=== PATIENT | female | born 1955 | race Hispanic/Latino ===

== ENCOUNTER → 2024-05-03 | Outpatient (CLI) | payer MEDICARE, OTHER | END | disposition home or self-care (01) | LOC: RAH 13:35 | PROVIDERS: ATTEND Internal Medicine | DX: M85.89 Other specified disorders of bone density and structure, multiple sites (principal); M81.0 Age-related osteoporosis without current pathological fracture | CPT/HCPCS: 77080 ==

== ENCOUNTER → 2024-07-07 | Outpatient (CLI) | payer MEDICARE, OTHER | END | disposition home or self-care (01) | LOC: RAH 12:55 | PROVIDERS: ATTEND Orthopaedic Surgery | DX: M19.012 Primary osteoarthritis, left shoulder (principal); M19.011 Primary osteoarthritis, right shoulder; M25.711 Osteophyte, right shoulder; M25.712 Osteophyte, left shoulder; M25.811 Other specified joint disorders, right shoulder; M75.122 Complete rotator cuff tear or rupture of left shoulder, not specified as traumatic | CPT/HCPCS: 73221 ==

== ENCOUNTER → 2024-07-14 | Outpatient (CLI) | payer MEDICARE, OTHER | END | disposition home or self-care (01) | LOC: RAH 09:00 | PROVIDERS: ATTEND Family Medicine | DX: K80.20 Calculus of gallbladder without cholecystitis without obstruction (principal); N28.1 Cyst of kidney, acquired; R10.9 Unspecified abdominal pain | CPT/HCPCS: 76700 ==

== ENCOUNTER 2024-12-08 07:12 | Day surgery (SDC) | payer MEDICARE, OTHER ==
[2024-12-02 12:37] LABS: BASOPHILS # (AUTO) 0.05 K/uL (0.00-0.20); BASOPHILS % (AUTO) 1.1 % (0.0-5.0); EOSINOPHILS # (AUTO) 0.12 K/uL (0.00-0.70); EOSINOPHILS % (AUTO) 2.7 % (0.0-8.0); HEMATOCRIT 37.7 % (36-48); IMMATURE GRANULOCYTE ABSOLUTE 0.02 K/uL (0-1); LYMPHOCYTES # (AUTO) 1.5 K/uL (1.0-4.8); LYMPHOCYTES % (AUTO) 34.5 % (21.0-51.0); MEAN CORPUSCULAR HEMOGLOBIN 29.2 pg (27.0-33.0); MEAN CORPUSCULAR HGB CONC 33.4 g/dL (32.0-36.0); MEAN CORPUSCULAR VOLUME 87.3 fL (79-99); MONOCYTES # (AUTO) 0.4 K/uL (0.1-1.0); MONOCYTES % (AUTO) 8.4 % (3.0-13.0); NEUTROPHILS # (AUTO) 2.3 K/uL (1.8-7.7); NEUTROPHILS % (AUTO) 52.8 % (40.0-77.0); PLATELET COUNT (AUTO) 156 K/uL (130-400); RED BLOOD CELL COUNT(AUTO) 4.32 MIL/uL (4.00-5.50); RED CELL DISTRIBUTION WIDTH 12.4 % (11.0-15.5); WHITE BLOOD COUNT (AUTO) 4.4 K/uL (4.8-10.8)
--- NOTE | 2024-12-02 12:47 | EKG ---
[facility] Test Date: 2024-12-02 Test Time: 13:12:13 Pat Name: ALIS QUEZADA Department: [facility] Room: Gender: F Net Front End Developer: [id number] : 1955 Requested By: ORLY LARES Order Number: [id number] Reading MD: Priya Murrell Measurements Intervals [place] Rate: 61 P: 40 ME: 146 QRS: 32 QRSD: 98 T: 27 QT: 434 QTc: 437 Interpretive Statements Sinus rhythm No previous ECG available for comparison Electronically Signed On 12-03-2024 08:45:54 ELECTRIC SYSTEM OPERATOR by Priya Murrell Please click the below link to view image of tracing.
[2024-12-02 12:51] LABS: CREATININE 0.6 mg/dL (0.5-1.0); POTASSIUM 3.8 mmol/L (3.5-5.1)
[2024-12-02 12:52] LABS: INR 0.96 (0.85-1.15); PROTHROMBIN TIME 10.2 SEC (9.6-11.6)
[2024-12-02 13:26] VITALS: BP 199/88; PULSE 69; RESP 18; TEMP 97.3
[2024-12-08] VITALS (17 sets, daily range): BP systolic 98–154; BP diastolic 46–75; PULSE 55–74; RESP 9–18; TEMP 97–97.5
[~2024-12-08] VITALS: Ht 161.3 cm; Wt 69.9 kg
[~2024-12-08 07:12] MED LIST: ATOR40TA71 PO; DICL75TA5 PO; GABA-529 PO; LISI1TAB53 PO; linaclotide PO; vitamin d PO
[2024-12-08] MEDS ORDERED: SUCCINYLCHOLINE CHLORIDE 20 MG/ML 10 ML VIAL ONE (07:18)
[2024-12-08] MEDS ORDERED: proPOFol 10 MG/ML 20ML VIAL IV ONE (07:18)
[2024-12-08] MEDS ORDERED: LIDOCAINE PF 100MG/5ML (2%) SYRINGE 5ML ONE (07:18)
[2024-12-08] MEDS ORDERED: NEOSTIGMINE METHYLSULFATE 1MG/ML IV ONE (07:19)
[2024-12-08] MEDS ORDERED: dexaMETHasone SOD PHOSPHATE 10MG/ML 1ML VIAL ONE (07:19)
[2024-12-08] MEDS ORDERED: GLYCOPYRROLATE 0.2 MG/ML 5 ML VIAL ONE (07:19)
[2024-12-08] MEDS ORDERED: FENTanyl CITRate PF 50 MCG/1 ML 2ML VIAL ONE ×2 (07:19→14:02)
[2024-12-08] MEDS ORDERED: rocuRONium bROMide 10MG/1ML 5ML VL ONE (07:19)
[2024-12-08] MEDS ORDERED: ondanSETRON 4MG INJ ONE (07:19)
[2024-12-08] MEDS ORDERED: MIDAZOLAM HCL 1 MG/ML 2ML VIAL ONE (07:20)
[2024-12-08] MEDS ORDERED: ROPivacaine 0.5% 5MG/ML 30ML ONE (07:24)
[2024-12-08] MEDS ORDERED: phenylEPHRINE HCL 10 MG/ML 1ML VIAL IV ONE (07:26)
[2024-12-08] MEDS ORDERED: ketaMINE 50MG/ML SYRINGE 50 MG/ML DISP.SYRIN ONE (07:29)
[2024-12-08] MEDS: LACTATED RINGERS 1000ML 1,000 ML IV ONE (08:00)
[2024-12-08] MEDS: ceFAZolin SODIUM 2 GM VIAL ONE (08:00)
[2024-12-08] MEDS ORDERED: EPINEPHrine PF 1MG (1:1,000) 1 MG/ML AMP ONE ×2 (09:03→14:18)
[2024-12-08] MEDS ORDERED: HYDR-4060 PO (14:50)
--- NOTE | 2024-12-08 14:56 | OP ---
Operative Note: DATE OF PROCEDURE: 12/08/24 SURGEON: ORLY LARES MD DIRECTOR CORPORATE COMPLIANCE: [ARACELIS Alvarez] ANESTHESIA: [General anesthesia plus regional block] ANESTHESIOLOGIST/HYPERION ESSBASE DEVELOPER: [Juan Garcia CRNA] PREOPERATIVE DIAGNOSIS: [Right shoulder rotator cuff tear, subacromial and acromioclavicular joint impingement] POSTOPERATIVE DIAGNOSIS: [Same] PROCEDURE: [Right shoulder arthroscopic rotator cuff tear repair, subacromial decompression and distal clavicle resection] ESTIMATED BLOOD LOSS: [20 mL] INDICATIONS: [The patient is a 69-year-old female with history of chronic pain to the left shoulder that has not responded to conservative treatment. MRI shows the presence of a rotator cuff tear of the supraspinatus as well as im pingement. The patient is brought to the operating room for a diagnostic arthroscopy, procedure that she understood, risks, benefits and possible complications and agreed signed the consent form.] DESCRIPTION OF PROCEDURE: [After adequate general anesthesia was achieved and regional block obtained the patient was placed in the beach chair position and the right upper extremity was prepped and draped in the usual manner. After identification of the bony landmarks we proceeded to make a small incision in the posterior aspect of the shoulder subacromial area through the skin followed by blunt dissection with the arthroscopic trocar entering into the shoulder joint removing the trocar and applying the arthroscope into the sheath. After inflating the joint with fluid evaluation of the joint revealed chronic synovitis, normal subscapularis tendon, absent biceps tendon, chronic degener ative changes of the labrum, and very minimal degenerative changes of the glenohumeral joint surfaces. The supraspinatus showed changes compatible with a tear and the infraspinatus was normal. A trocar was inserted to the anterior aspect of the shoulder after a small incision was carried down in the skin and through this trocar with penetrated with a shaver and proceeded to debride all the chronic inflammatory tissue present. We then proceeded to remove the arthroscope from the joint and after reapplying the trocar into the sheath we redirected it and inserted it into the subacromial space. Once again we switch the trochar for the arthroscope and evaluation of the subacromial space revealed mild amount of bursal tissue and a 3rd incision was made in the lateral aspect of the subacromial area through the skin and then with a blunt trocar we proceeded to enter this area followed by application of the cautery proceeding then to remove most of the bursal tissue opening the subacromial space noticing that there was obvious impingement due to the acromial hypertrophy and the acromioclavicular joint inferior osteophytes. The anterior cannula was then placed in the subacromial space. With the use of the shaver and through the lateral cannula we proceeded to continue cleaning the subacromial space and we easily exposed the rotator cuff and identified the tear of the supraspinatus. Once we cleared the bursal tissue from the tear we proceeded then to use the shaver to clean the footprint of the supraspinatus insertion and then we inserted a large bore cannula through the lateral portal and then proceeded to repair the tear. We attempted twice to place a 4.5 [employer] anchors which was successful but when we were trying to tie the knots that the drain into the tendon the sutures prove to be very frail and broke. Through the lateral portal we then apply a horizontal mattress stitch to the supraspinatus tendon with a tape suture passing the first part of the suture to the anterior cannula and once the second part of the suture was passed through the muscle and back to the lateral cannula we then proceeded to bring the first part of the s uture back to the lateral cannula. The 2 ends of the suture were then threaded into a 5.5 anchor from [employer] and then we brought it through the cannula into the superolateral aspect of the tuberosity and Into the bone while holding tension and reducing the tear down to its insertion site until it reached the threaded portion and we then proceeded to screw the rest of the anchor into the bone. Once the anchor was buried we then proceeded to disengage the ash worker and cut the ends of the suture completing the repair. Evaluation of the repair revealed that this has been adequate. At this point we proceeded then to start the decompression with the use of the bur starting with the subacromial area removing the tip of the acromion first and then proceeding posteriorly and once completed we then pay attention to the distal end of the clavicle removing the inferior two thirds. Once the distal clavicle was resected we then proceeded to remove the debris from the subacromial area then the fluid and the arthroscope. The incisions were then closed with 2-0 Monocryl inverted stitches followed by application of Dermabond to seal the incisions and then they were covered with a small Telfa dressings and OpSite's. The drapes were then removed and the patient was placed in an arm sling. The bed was placed in the supine position and the patient was transferred to a stretcher and taken to recovery room for follow-up by anesthesia. There were no complications during the procedure.] ORLY LARES MD Dec 08, 2024 14:56
== END 2024-12-08 17:10 | disposition home or self-care (01) ==
LOC: DAH 07:12
PROVIDERS: ATTEND Orthopaedic Surgery
DX: M75.121 Complete rotator cuff tear or rupture of right shoulder, not specified as traumatic (principal); M75.41 Impingement syndrome of right shoulder; S46.111S Strain of muscle, fascia and tendon of long head of biceps, right arm, sequela; M25.811 Other specified joint disorders, right shoulder; G89.29 Other chronic pain; I10 Essential (primary) hypertension; E78.5 Hyperlipidemia, unspecified; M19.90 Unspecified osteoarthritis, unspecified site; Z79.01 Long term (current) use of anticoagulants; X58.XXXS Exposure to other specified factors, sequela
CPT/HCPCS: 80048; 85025; 85610; 36415; 93005; 29827; 64415; 29824; 29826; A4215; A4223; A4222; A4221; A4663; C1713 ×2; J7030; J7120; J3010 ×2; J1100; J0330; J3490 ×3; J2003; J0171 ×2; J2250; J2704; J2405; J2710; J2795; J2371; J0690; A6206; A6204; A4930 ×2; A4600

== ENCOUNTER 2025-02-17 07:42 | Day surgery (SDC) | payer MEDICARE, OTHER ==
[2025-02-15 12:01] LABS: BASOPHILS # (AUTO) 0.06 K/uL (0.00-0.20); BASOPHILS % (AUTO) 1.3 % (0.0-5.0); EOSINOPHILS # (AUTO) 0.15 K/uL (0.00-0.70); EOSINOPHILS % (AUTO) 3.2 % (0.0-8.0); IMMATURE GRANULOCYTE ABSOLUTE 0.02 K/uL (0-1); LYMPHOCYTES # (AUTO) 1.3 K/uL (1.0-4.8); LYMPHOCYTES % (AUTO) 27.5 % (21.0-51.0); MEAN CORPUSCULAR HEMOGLOBIN 29.9 pg (27.0-33.0); MEAN CORPUSCULAR HGB CONC 33.3 g/dL (32.0-36.0); MEAN CORPUSCULAR VOLUME 89.8 fL (79-99); MONOCYTES # (AUTO) 0.3 K/uL (0.1-1.0); MONOCYTES % (AUTO) 6.8 % (3.0-13.0); NEUTROPHILS # (AUTO) 2.9 K/uL (1.8-7.7); NEUTROPHILS % (AUTO) 60.8 % (40.0-77.0); PLATELET COUNT (AUTO) 155 K/uL (130-400); RED BLOOD CELL COUNT(AUTO) 4.01 MIL/uL (4.00-5.50); RED CELL DISTRIBUTION WIDTH 12.5 % (11.0-15.5); WHITE BLOOD COUNT (AUTO) 4.7 K/uL (4.8-10.8)
[2025-02-15 12:09] LABS: CREATININE 0.8 mg/dL (0.5-1.0)
[2025-02-15 12:19] VITALS: BP 166/89; PULSE 70; RESP 18; TEMP 97.3
[~2025-02-17] VITALS: Ht 157.5 cm; Wt 68.6 kg
[2025-02-17] VITALS (16 sets, daily range): BP systolic 117–187; BP diastolic 58–90; PULSE 70–92; RESP 12–18; TEMP 97.3–97.5
[~2025-02-17 07:42] MED LIST changes: -DICL75TA5 PO; -GABA-529 PO; -vitamin d PO
[2025-02-17] MEDS: LACTATED RINGERS 1000ML 1,000 ML IV ONE (09:14)
[2025-02-17] MEDS: ceFAZolin SODIUM 2 GM VIAL ONE (09:14)
[2025-02-17] MEDS ORDERED: GABAPENTIN 300 MG CAPSULE ONE (09:40)
[2025-02-17] MEDS ORDERED: acetaMINOPHEN 100 ML ONE (09:41)
[2025-02-17] MEDS ORDERED: FAMOTIDINE 20MG VIAL IV ONE (09:41)
[2025-02-17] MEDS ORDERED: rocuRONium bROMide 10MG/1ML 5ML VL ONE (09:56)
[2025-02-17] MEDS ORDERED: proPOFol 10 MG/ML 20ML VIAL IV ONE (09:56)
[2025-02-17] MEDS ORDERED: ketaMINE 50MG/ML SYRINGE 50 MG/ML DISP.SYRIN ONE (09:57)
[2025-02-17] MEDS ORDERED: FENTanyl CITRate PF 50 MCG/1 ML 2ML VIAL ONE (09:57)
[2025-02-17] MEDS ORDERED: LIDOCAINE PF 100MG/5ML (2%) SYRINGE 5ML ONE (09:57)
[2025-02-17] MEDS ORDERED: ROPivacaine 0.5% 5MG/ML 30ML ONE (09:58)
[2025-02-17] MEDS ORDERED: EPINEPHrine PF 1MG (1:1,000) 1 MG/ML AMP ONE (11:07)
[2025-02-17] MEDS ORDERED: ondanSETRON 4MG INJ ONE (12:46)
[2025-02-17] MEDS ORDERED: dexaMETHasone SOD PHOSPHATE 10MG/ML 1ML VIAL ONE (12:46)
[2025-02-17] MEDS ORDERED: NEOSTIGMINE METHYLSULFATE 1MG/ML IV ONE (13:09)
[2025-02-17] MEDS ORDERED: GLYCOPYRROLATE 0.2 MG/ML 5 ML VIAL ONE ×2 (13:09→14:24)
[2025-02-17] MEDS ORDERED: ePHEDrine SULFate 50 MG/ML AMPULE ONE (13:39)
[2025-02-17] MEDS: EPINEPHrine PF 1MG (1:1,000) 1 MG/ML AMP MISC ONE (14:19)
[2025-02-17] MEDS ORDERED: HYDR-4060 PO (14:54)
[2025-02-17] MEDS ORDERED: MELO-108 PO (14:54)
[2025-02-17] MEDS: hydrALAZine 20MG/ML VIAL ONE (14:57)
--- NOTE | 2025-02-17 15:04 | OP ---
Operative Note: DATE OF PROCEDURE: 02/17/25 SURGEON: ORLY LARES MD INGREDIENT SCALER HELPER: [Uri Simpson CFA] ANESTHESIA: [General anesthesia plus regional block] ANESTHESIOLOGIST/SURGICAL GARMENT FITTER: [Mily Poole CRNA] PREOPERATIVE DIAGNOSIS: [left shoulder rotator cuff tear, subacromial and acromioclavicular joint impingement] POSTOPERATIVE DIAGNOSIS: [Same] PROCEDURE: [Left shoulder arthroscopic rotator cuff tear repair, subacromial decompression and distal clavicle resection] ESTIMATED BLOOD LOSS: [20 mL] INDICATIONS: [The patient is a 70-year-old female with history of chronic pain to the left shoulder that has not responded to conservative treatment. MRI shows the presence of a rotator cuff tear of the supraspinatus as well as im pingement. The patient is brought to the operating room for a diagnostic arthroscopy, procedure that she understood, risks, benefits and possible complications and agreed signed the consent form.] DESCRIPTION OF PROCEDURE: [After adequate general anesthesia was achieved and regional block obtained the patient was placed in the beach chair position and the left upper extremity was prepped and draped in the usual manner. After identification of the bony landmarks we proceeded to make a small incision in t he posterior aspect of the shoulder subacromial area through the skin followed by blunt dissection with the arthroscopic trocar entering into the shoulder joint removing the trocar and applying the arthroscope into the sheath. After inflating the joint with fluid evaluation of the joint revealed chronic synovitis, degenerative changes were present in the subscapularis tendon, there was significant degeneration of the proximal biceps tendon, and this was debrided but the tendon remained attached. chronic degenerative changes of the labrum, and very minimal degenerative changes of the glenohumeral joint surfaces. The supraspinatus showed changes compatible with a tear and the infraspinatus was normal. A trocar was inserted to the anterior aspect of the shoulder after a small incision was carried down in the skin and through this trocar with penetrated with a shaver and proceeded to debride all the chronic inflammatory tissue present. We then proceeded to remove the arthroscope from the joint and after reapplying the trocar into the sheath we redirected it and inserted it into the subacromial space. Once again we switch the trochar for the arthroscope and evaluation of the subacromial space revealed mild amount of bursal tissue and a 3rd incision was made in the lateral aspect of the subacromial area through the skin and then with a blunt trocar we proceeded to enter this area followed by application of the cautery proceeding then to remove most of the bursal tissue opening the subacromial space noticing that there was obvious impingement due to the acromial hypertrophy and the acromioclavicular joint inferior osteophytes. The anterior cannula was then placed in the subacromial space. With the use of the shaver and through the lateral cannula we proceeded to continue cleaning the subacromial space and we easily exposed the rotator cuff and identified the tear of the supraspinatus. Once we cleared the bursal tissue from the tear we proceeded then to use the shaver to clean the footprint of the supraspinatus insertion and then we inserted a large bore cannula through the lateral portal and then proceeded to repair the tear. We we passed a tape suture through the lateral portal in an horizontal mattress fashion which was then threaded into a 6.5 anchor from [employer] and then the anchor was inserted into the joint and placed right at the center of the tear of the greater tuberosity obtain adequate fixation and repair of the tear. We then proceeded to disengage the utility bill collection clerk and cut the ends of the suture c ompleting the repair. Evaluation of the repair revealed that this has been adequate. At this point we proceeded then to start the decompression with the use of the bur starting with the subacromial area removing the tip of the acromion first and then proceeding posteriorly and once completed we then pay attention to the distal end of the clavicle removing the inferior two thirds. Once the distal clavicle was resected we then proceeded to remove the debris from the subacromial area then the fluid and the arthroscope. The incisions were then closed with 2-0 Monocryl inverted stitches followed by application of Dermabond to seal the incisions and then they were covered with a small Telfa dressings and OpSite's. The drapes were then removed and the patient was placed in an arm sling. The bed was placed in the supine position and the patient was transferred to a stretcher and taken to recovery room for follow-up by anesthesia. There were no complications during the procedure.] ORLY LARES MD February 17, 2025 15:04
== END 2025-02-17 16:40 | disposition home or self-care (01) ==
LOC: DAH 07:42
PROVIDERS: ATTEND Orthopaedic Surgery
DX: M75.42 Impingement syndrome of left shoulder (principal); M24.112 Other articular cartilage disorders, left shoulder; M75.112 Incomplete rotator cuff tear or rupture of left shoulder, not specified as traumatic; M25.812 Other specified joint disorders, left shoulder; M65.912 Unspecified synovitis and tenosynovitis, left shoulder; E78.5 Hyperlipidemia, unspecified; M19.90 Unspecified osteoarthritis, unspecified site; I10 Essential (primary) hypertension; Z79.899 Other long term (current) drug therapy; Z98.890 Other specified postprocedural states; Z90.710 Acquired absence of both cervix and uterus; Z83.3 Family history of diabetes mellitus; Z82.49 Family history of ischemic heart disease and other diseases of the circulatory system
CPT/HCPCS: 80048; 85025; 36415; 29827; 64415; 29826; 29824; A4663; J7030; J7120; J3490 ×6; J3010; J1100; J2003; J0171 ×2; J0360; J2704; J2405; J2710; J2795; J0690; A6204; A4930 ×3; C1713 ×2; A4215; A4222; A4221; A4216; A4223 ×2